=== PATIENT | female | born 1990 | race Caucasian/White ===

== ENCOUNTER → 2018-03-27 | Emergency (ER) | payer BC ==
[~2018-03-27] VITALS: Ht 167.6 cm; Wt 77.7 kg
[~2018-03-27] MED LIST: IBUP-1542 PO; IBUPROFEN 600 MG TAB PO ONE; TRAM50TA2 PO
[2018-03-27 03:31] VITALS: BP 120/68; PULSE 106; RESP 20; Ht 167.6 cm; Wt 77.7 kg
--- NOTE | 2018-03-27 04:01 | ERD ---
ER Documentation Chief Complaint Chief Complaint twisted ankle s/p wearing heels and falling down 4 stairs. no KO HPI 27-year-old female presents here to emergency department for complaints of left ankle pain after twisting it while falling down stairs today, describes the pain as throbbing pain, 6/10 scale, as was upon movement, did not take any medications to help with symptoms. Patient denies any numbness or tingling. Patient denies any deformity. ROS All systems reviewed and are negative except as per history of present illness. Medications Home Meds Reported Medications [None] Unknown Strength No Conflict Check 03/27/18 Allergies Allergies: Coded Allergies: banana (Verified Allergy, Unknown, 03/27/18) PMhx/Soc Medical and Surgical Hx: pt denies Medical Hx, pt denies Surgical Hx FmHx Family History: No diabetes, No coronary disease, No other Physical Exam Vitals Vital Signs Date Temp Pulse Resp B/P (MAP) Pulse Ox O2 O2 Flow FiO2 Time Delivery Rate 03/27/18 97.8 106 20 120/68 97 03:31 (85) Physical Exam GENERAL: The patient is well developed and appropriate for usual state of health, in no apparent distress. CHEST: Clear to auscultation bilaterally. There are no rales, wheezes or rhonchi. HEART: Regular rate and rhythm. No murmurs, clicks, rubs or gallops. No S3 or S4. ABDOMEN: Soft, nontender and nondistended. Good bowel sounds. No rebound or guarding. No gross peritonitis. No gross organomegaly or masses. No Nolan sign or McBurney point tenderness. BACK: No midline or flank tenderness. EXTREMITIES: Tenderness on palpation of the lateral malleolus of the left ankle, no deformity noted, mild swelling noted. Able to ambulate on it. Equal pulses bilaterally. There is no peripheral clubbing, cyanosis or edema. No focal swelling or erythema. Full range of motion. Grossly neurovascularly intact. NEURO: Alert and oriented. Cranial nerves 2-12 intact. Motor strength in all 4 extremities with 5/5 strength. Sensation grossly intact. Normal speech and gait. SKIN: There is no apparent rash or petechia. The skin is warm and dry. HEMATOLOGIC AND LYMPHATIC: There is no evidence of excessive bruising or lymphedema. No gross cervical, axillary, or inguinal lymphadenopathy. Results 24 hrs Current Medications Medications Dose Sig/Marcello Start Time Status Last (Trade) Ordered Route PRN Stop Time Admin Dose Reason Admin Ibuprofen 600 mg ONCE ONCE 03/27/18 DC (Motrin) PO 04:00 03/27/18 04:01 Patient was given medication for pain here in emergency department, after treatment, patient verbalized feeling much better. Patient's pain is improved. PROCEDURE: Left ankle series CLINICAL INDICATION: Pain and swelling TECHNIQUE: AP lateral and oblique images left ankle were obtained COMPARISON: None FINDINGS: There is no evidence of acute fractures or dislocations. The bony mineralization is normal. No focal bony blastic or lytic lesions. Mild soft tissue swelling along the lateral left ankle without foreign body. IMPRESSION: Mild left lateral ankle soft tissue swelling without evidence of acute fracture or dislocation. RPTAT:AAJJ Physician Radha Date Time Electronically viewed and signed by [place] Physician on 03/27/2018 04:09 BM/ CC: SEE CHANDLER [employer] [phone] Procedures/MDM Medical Decision Making: Patient's pain is most likely consistent with a left ankle sprain. There is no suspicion for neurovascular compromise. Patient has intact sensation and circulation of the affected extremity. There is low suspicion for septic arthritis. Patient does not have any fever. Radiology exams of the affected area does not show any fracture or dislocation. Disposition: Home. Patient is given prescription for ibuprofen for pain, tramadol for severe pain. Patient was advised to elevate the affected area and apply ice on affected area. Patient was advised that if symptoms are worse, numbness, tingling, high fever, unable to move joint, worsening symptoms, to return to emergency department immediately. Otherwise, patient is advised to follow up with the primary care doctor in 5-7 days for reevaluation of symptoms. Disclaimer: Inadvertent spelling and grammatical errors are likely due to EHR/dictation software use and do not reflect on the overall quality of patient care. Also, please note that the electronic time recorded on this note does not necessarily reflect the actual time of the patient encounter. Departure Diagnosis: Primary Impression: Ankle sprain Encounter type: initial encounter Involved ligament of ankle: unspecified ligament Laterality: left Qualified Codes: S93.402A - Sprain of unspecified ligament of left ankle, initial encounter Condition: Stable Patient Instructions: Treating Ankle Sprains Additional Instructions: Patient is given prescription for ibuprofen for pain, tramadol for severe pain. Patient was advised to elevate the affected area and apply ice on affected area. Patient was advised that if symptoms are worse, numbness, tingling, high fever, unable to move joint, worsening symptoms, to return to emergency department immediately. Otherwise, patient is advised to follow up with the primary care doctor in 5-7 days for reevaluation of symptoms. SEE CHANDLER NP Mar 27, 2018 04:01
== END | disposition home or self-care (01) ==
LOC: FTE 03:29
DX: S93.402A Sprain of unspecified ligament of left ankle, initial encounter (principal); W10.8XXA Fall (on) (from) other stairs and steps, initial encounter; Y92.9 Unspecified place or not applicable
CPT/HCPCS: 73610

== ENCOUNTER 2018-08-21 23:59 | Emergency (ER) | payer BC ==
[~2018-08-21] VITALS: Wt 77.7 kg
[~2018-08-21 23:59] MED LIST changes: -IBUPROFEN 600 MG TAB PO ONE
[2018-08-22] MEDS ORDERED: IBUPROFEN 600 MG TAB PO ONE (02:00)
[2018-08-22] MEDS ORDERED: NAPR-985 PO (04:16)
[2018-08-22 04:28] VITALS: BP 125/76; PULSE 73; RESP 18
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
== END 2018-08-22 04:29 | disposition home or self-care (01) ==
LOC: FTE 23:59
DX: S13.4XXA Sprain of ligaments of cervical spine, initial encounter (principal); F17.200 Nicotine dependence, unspecified, uncomplicated; V49.50XA Passenger injured in collision with unspecified motor vehicles in traffic accident, initial encounter
CPT/HCPCS: 72040; 72072; 72100; 81025